=== PATIENT | female | born 1980 | race African-American/Black ===

== ENCOUNTER 2016-10-30 09:01 | Outpatient (CLI) | payer OTHER | END 2016-10-30 10:05 | disposition home or self-care (01) | LOC: US 09:01 | DX: R10.2 Pelvic and perineal pain (principal); Z30.430 Encounter for insertion of intrauterine contraceptive device ==

== ENCOUNTER 2019-10-12 08:53 | Outpatient (CLI) | payer OTHER | END 2019-10-12 19:17 | disposition home or self-care (01) | LOC: MAMMO 08:53 | DX: Z12.31 Encounter for screening mammogram for malignant neoplasm of breast (principal) ==

== ENCOUNTER 2020-06-11 09:25 | Outpatient (CLI) | payer OTHER ==
[2020-06-11 10:12] LABS: POTASSIUM 3.9 mmol/L (3.6-5.2); SODIUM 142 mmol/L (136-145)
[2020-06-11 10:28] LABS: PLATELET COUNT 285 K/uL (152-353)
== END 2020-06-11 20:11 | disposition home or self-care (01) ==
LOC: LABW 09:25
PROVIDERS: ATTEND Family Medicine
DX: R11.2 Nausea with vomiting, unspecified (principal); R06.02 Shortness of breath; R42 Dizziness and giddiness
CPT/HCPCS: 36415; 80053; 80061; 82550; 83735; 84439; 84443; 84484; 85027; 93005

== ENCOUNTER 2020-06-12 20:50 | Observation (INO) | payer OTHER ==
[~2020-06-12] VITALS: Ht 157.5 cm; Wt 76.7 kg
[2020-06-12 22:48] VITALS: BP 124/88; TEMP 99.2; Ht 157.5 cm; Wt 76.7 kg
--- NOTE | 2020-06-12 23:19 | NUR ---
06/12/202115: PT ARRIVED BY WHEELCHAIR TO ROOM 1113. PT IS A DIRECT ADMIT FROM DR. MANUEL. PT DENIES NAUSEA AT THIS TIME. IN ROOM TO INTERPRET SINCE PT SPEAKS NO [id number].
--- NOTE | 2020-06-12 23:31 | NUR ---
PATIENT DENIES ANY CHEST PAIN OR ANY PAIN. SHE REPORTS NAUSEA. MEDICATION WAS GIVEN. AT THE BEDSIDE. TELEMETRY APPLIED. VITALS STABLE
[2020-06-12 23:41] VITALS: BP 121/80; TEMP 99.1
[2020-06-13 04:20] VITALS: BP 111/72; TEMP 98.4
[2020-06-13 05:22] LABS: PLATELET COUNT 267 K/uL (152-353)
--- NOTE | 2020-06-13 05:22 | NUR ---
PT HAS RESTED WELL THIS SHIFT. NO VOMITING NOTED AND PT HAS NOT C/O NAUSEA.
[2020-06-13 05:45] LABS: POTASSIUM 3.6 mmol/L (3.6-5.2)
[2020-06-13 08:00] VITALS: BP 123/71; TEMP 98.3
--- NOTE | 2020-06-13 09:50 | NUR ---
KASANDRA, DR. MANUEL'S NURSE, CALLED FOR STATUS UPDATE ON PATIENT. PROVIDED SAME AND INFORMED PATIENT WAS RECENTLY ADMINISTERED ZOFRAN 4MG IV PER PHYSICIAN ORDERS FOR C/O OF NAUSEA. RECEIVED NEW ORDERS FROM PHYSICIAN AT THIS TIME TO ADMINISTER ZOFRAN 4MG IVP X1 DOSE TO PATIENT PRIOR TO LUNCH AND TO CALL DR. MANUEL WITH STATUS UPDATE ON PATIENT, NOTED AND CARRIED OUT.
[2020-06-13 11:45] VITALS: BP 131/77; TEMP 98.1
--- NOTE | 2020-06-13 13:05 | NUR ---
DR. MANUEL AT BEDSIDE ASSESSING PATIENT. RECEIVED NEW ORDERS FOR ROCEPHINE 2GM IV X1 DOSE NOW, NOTED AND CARRIED OUT.
--- NOTE | 2020-06-13 13:35 | NUR ---
DR. MANUEL CALLED AND ORDERED SOLUMEDROL 80MG DAILY WITH A STAT DOSE NOW, NOTED AND CARRIED OUT.
--- NOTE | 2020-06-13 14:40 | NUR ---
PATIENT RESTING QUIETLY IN BED WITH EYES CLOSED, AT BEDSIDE. NAD NOTED WITH PATIENT AT THIS TIME.
[2020-06-13 16:04] VITALS: BP 151/76; TEMP 98.4
--- NOTE | 2020-06-13 18:04 | NUR ---
PT REPORTS SHE BECOMES DIZZY WHILE AMBULATING. UNSUCCESSFULLY ATTEMPTED TO NOTIFY DR. MANUEL OF SAME.
[2020-06-13 20:18] VITALS: BP 135/90; TEMP 98.5
--- NOTE | 2020-06-13 20:32 | NUR ---
CALLED WITH [facility] ASKED IF SHE WANTED ME TO LOWER THE NORMAL SALINE THAT IS GOING AT 150ML/HR. THE MD SAID, "JUST KEEP IT GOING." I ALSO ASKED IF SHE WANTED ME TO DC THE TELEMETRY BC ALL THE PATIENT CARDIACS CAME BACK NORMAL BUT THE MD SAID KEEP THEM WELL
--- NOTE | 2020-06-13 22:48 | NUR ---
PATIENT NO LONGER REPORTS DIZZINESS AND SHE ALSO RECIEVED A SHOWER
[2020-06-13 23:53] VITALS: BP 121/73; TEMP 98.1
--- NOTE | 2020-06-14 00:24 | NUR ---
PATIENT DENIES ANY PAIN OR DISCOMFORT
--- NOTE | 2020-06-14 02:40 | NUR ---
PATIENT IS RESTING ON HER RIGHT SIDE. BREATHING IS REGULAR NON LABORED. UP IN CHAIR AT BEDSIDE.
[2020-06-14 03:54] VITALS: BP 119/72; TEMP 98.2
--- NOTE | 2020-06-14 05:38 | NUR ---
PATIENT IS RESTING AND DENIES ANY PAIN OR DIZZINESS
[2020-06-14 08:00] VITALS: BP 107/55; TEMP 98.1
--- NOTE | 2020-06-14 10:40 | NUR ---
PT'S NEW MEDICATIONS, OMNICEF 300MG PO BID X 10 DAYS, MEDROL DOSE PACK TO START TOMORROW FILLED BY [facility]. REFILLS FOR PROTONIX 40 MG PO QAM SENT TO [facility] PER PT'S REQUEST. PT GIVEN DISCHARGE INSTRUCTIONS. PT INSTRUCTED BY CAROLINE GRACE, EXCELLENCE LEADER ON NEW MEDICATIONS AND HOW TO TAKE THEM. PT INSTRUCTED TO F/U WITH DR. MANUEL ON June AT 1015. PT VERBALIZES UNDERSTANDING. PT INSTRUCTED THAT IF DIZZINESS/NAUSEA/VOMITING GETS WORSE BEFORE F/U APPT TO GO TO ER. PT VERBALIZED UNDERSTANDING. PT DISCHARGED AMBULATORY AT HER REQUESTS. ACCOMPANIED BY HER SPOUSE.
== END 2020-06-14 16:46 | disposition home or self-care (01) ==
LOC: MED/SURG 20:50
PROVIDERS: ADMIT Family Medicine; ATTEND Family Medicine
DX: J32.8 Other chronic sinusitis (principal); E78.49 Other hyperlipidemia; R11.2 Nausea with vomiting, unspecified; E86.0 Dehydration; R06.02 Shortness of breath; R42 Dizziness and giddiness; F41.8 Other specified anxiety disorders; R51.9 Headache, unspecified
CPT/HCPCS: 36415; 80053; 81000; 82550; 83735; 84100; 84484; 85027; 87635; 93005; 96361; 96365; 96366; 96367; 96374; 96375; 99220; G0378; G0379; J0696; J2060; J2405; J2930; J3490; U0003